=== PATIENT | female | born 1950 | race Caucasian/White ===

== ENCOUNTER → 2017-01-06 | Outpatient (CLI) | payer BC, OTHER ==
[~2017-01-06] MED LIST: /FEXO18TA; ACET50TAOT PO; ADVIL PM; ALBU17IN INH; ASPI81TA3; AZIT250T3 PO; BENA25CA2 PO; CEFD1CAP8 PO; DYAZ37.5; ECOT325T5; GABA300C3 PO; HYDR-3713 PO; LEVO75TA4 PO; LISI10TA4; LOVE0.8I3 SC; METO25TAB PO; MONT10TA2 PO; MULTIVITAMIN; NEUR300C; PRAD150C PO; PROV100T; SYNT75TA; TRAM50TA2; TRAM50TA2 PO; VESICARE; VICO5TAB; VITA-121 PO; VITAMIN D50000 UNT; VITMTA PO; WELL200T; [UNRECOGNIZED DRUG - OTHER]; [UNRECOGNIZED DRUG - REMARK]; provigil; vesicare; vit d
--- NOTE | 2017-01-06 12:14 | REP ---
Clinical: Chest pain with chronic atrial fibrillation . Comparison: 07/29/2016 . Technique: PA and lateral. Findings: The mediastinum and cardiac silhouette are normal. The lung rivera are clear and without acute consolidation, effusion, or pneumothorax. The skeletal structures are intact and normal. Impression: 1. No acute cardiopulmonary process. Signed by Carter Garcia MD 01/06/2017 12:04 P
[2017-01-06 17:57] LABS: INR 1.15
[2017-01-06 18:24] LABS: ALBUMIN 3.5 GM/DL (3.2-5.2); ALKALINE PHOSPHATASE 64 U/L (45-117); ALT/SGPT 15 U/L (12-78); ANION GAP 10 MEQ/L (8-16); AST/SGOT 16 U/L (15-37); BILIRUBIN,TOTAL 0.3 MG/DL (0.2-1.0); BLOOD UREA NITROGEN 21 MG/DL (7-18); CALCIUM LEVEL 9.4 MG/DL (8.8-10.2); CARBON DIOXIDE LEVEL 27 MEQ/L (21-32); CHLORIDE LEVEL 107 MEQ/L (98-107); CREATININE FOR GFR 0.93 MG/DL (0.55-1.02); GLOMERULAR FILTRATION RATE > 60.0 (>45); GLUCOSE, FASTING 102 MG/DL (80-110); POTASSIUM SERUM 4.4 MEQ/L (3.5-5.1); SODIUM LEVEL 144 MEQ/L (136-145); TOTAL PROTEIN 7.4 GM/DL (6.4-8.2)
[2017-01-06 18:59] LABS: BASO % 0.5 % (0.0-1.0); EOS # 0.2 K/mm3 (0.0-0.50); EOS % 3.3 % (0.0-3.0); LYMPH # 2.4 K/mm3 (1.5-4.5); LYMPH % 40.2 % (24.0-44.0); MEAN CORPUSCULAR HEMOGLOBIN 27.6 pg (27.0-33.0); MEAN CORPUSCULAR HGB CONC 31.5 g/dl (32.0-36.5); MEAN CORPUSCULAR VOLUME 87.7 fl (80.0-96.0); MONO # 0.4 K/mm3 (0.0-0.8); MONO % 7.3 % (0.0-5.0); NEUTROPHILS # 2.8 K/mm3 (1.8-7.7); NEUTROPHILS % 47.2 % (36.0-66.0); RED CELL DISTRIBUTION WIDTH 15.3 % (11.5-14.5); WHITE BLOOD COUNT 5.9 K/mm3 (4.0-10.0)
== END ==
LOC: M SMT 11:42
PROVIDERS: ATTEND Physician Assistant Medical
DX: I48.2 Chronic atrial fibrillation (principal)

== ENCOUNTER → 2017-03-28 | Outpatient (CLI) | payer MEDICARE, BC, OTHER ==
[~2017-03-28] MED LIST changes: +GABA-282 PO; -GABA300C3 PO
--- NOTE | 2017-03-29 08:01 | RADONC ---
RADIATION ONCOLOGY CONSULTATION NOTE DATE: 03/28/2017 CHART NUMBER: [id number] DIAGNOSIS: Left breast cancer STAGE: I A, [id number]. ECOG performance status: 1. CONSULTATION NOTE: Ms. 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 HISTORY OF PRESENT ILLNESS: The patient was in her usual state of health until she felt a lump in her left breast in the fall of 2015. On 07/18/2016, the patient underwent needle localization excisional biopsy of her left breast mass. Pathology revealed a 0.8 cm moderately differentiated invasive ductal carcinoma. The tumor focally extended to the inked and cauterized anterior resection margin. The tumor was estrogen receptor and progesterone receptor positive and HER2 negative. DCIS was also present at the periphery of the invasive carcinoma. Further treatment and re-excision was planned, but apparently the patient developed a pulmonary embolism. She subsequently underwent multiple medical issues and her malignancy was unable to be addressed. On 02/15/2017, the patient underwent re-excision with a left lobe lumpectomy. Pathology revealed no evidence of residual carcinoma or DCIS. The patient was seen by medical oncology and has begun hormonal treatment. The patient has had difficulties with a hematoma and wound dehiscence. She is presenting to me today with a bandage which is clearly blood stained. PAST MEDICAL HISTORY: The patient's past medical history is positive for asthma, arthritis, bronchitis , pulmonary embolism, cataracts, cardiac problems including atrial fibrillation, carpal tunnel syndrome, a cholecystectomy, left rotator cuff surgery and spinal stenosis, as well as, sleep apnea and asthma. She has hypothyroidism. She is presently on Lovenox. ALLERGIES: The patient has NO KNOWN DRUG ALLERGIES. SOCIAL HISTORY: The patient does not smoke cigarettes nor abuse alcohol. FAMILY HISTORY: The patient's family history is positive for a father with colon cancer, a brother with colon cancer, a sister with leiomyosarcoma, another sister with breast cancer, and a brother with prostate cancer. REVIEW OF SYSTEMS: The patient's review of systems is positive for physical limitations secondary to her weight and spinal stenosis. She also has occasional dizziness. She reports some difficulty swallowing and decreased energy. PHYSICAL EXAMINATION: The patient is a 353 pound, 5 feet 5 inch female in no acute distress. HEENT: Exam is normocephalic, atraumatic. Extraocular movements are intact. There is no palpable cervical, supraclavicular, infraclavicular, axillary or inguinal lymphadenopathy present. The patient's lungs are clear to auscultation and percussion. Heart has a regular rate and rhythm. Breast examination reveals a right breast which is free of mass or discharge. Her left breast has an open wound which is oozing blood out. In the short time that the patient took her bandage off, there was blood running down her abdomen, her clothes, and it took a significant amount of pads to soak it up. The bleeding did not seem to slow down. She is as mentioned above on Lovenox. There is bruising over the breast and another area of an unhealed region of the scar. The swelling from the hematoma is clearly apparent. ASSESSMENT: At this point, I do not believe radiation is strongly indicated in this woman. I explained to the patient and her that the standard of care would be lumpectomy followed by external beam radiation therapy. External beam radiation therapy would normally be delivered within 6 weeks of surgery. Unfortunately, the patient had multiple medical issues and it is now 8 months since she was last found to have cancer. Indeed, the patient underwent a re-excision 7 months after her malignancy was excised and no residual disease was seen at all. The idea of giving postoperative radiation therapy at this point may be of just questionable benefit. To further exacerbate the issue, the patient's wound has broken down and she is bleeding. I do not see this healing anytime soon over the next month or two. This would delay radiation therapy even further. I have put a call in to her primary care provider, Geeta Bey, to discuss her bleeding. I am quite concerned at the amount of blood lost in the short period of time she was here. I am aware that this is from a hematoma, but in a patient with an open wound that is bleeding while on Lovenox, I am concerned that it may not stop. Indeed, the patient reports that her bleeding started yesterday and she lost a significant amount of blood initially which relieved the pressure of her breast mass. She reports that her breast is down in size by at least a half. She then reported that the hematoma seemed to fill back up and the bleeding has now resumed. I have recommended that she call Dr. Turner immediately and expressed concern with this bleeding while on Lovenox. The patient promised me she would call the surgeon. Once again, the patient is to call the surgeon and Geeta Bey today. Geeta Bey will be calling the patient as well. The patient is aware of the need to proceed with followup if this bleeding does not resolve soon. In addition, I have placed the patient on our list for discussion at multidisciplinary tumor conference. SUMMARY: Once again, I do not believe that radiation therapy would be of great benefit to this woman at this point, now 9 months post diagnosis of breast cancer. I would not be able to start treatment for at least 2 months I would anticipate to allow for further healing even if she chose to undergo treatment. cc: Brenna Chappell MD, FACP MD Joan Small PA MTDD
== END ==
LOC: M ONCR 10:16
PROVIDERS: ATTEND Radiology Radiation Oncology
DX: D05.12 Intraductal carcinoma in situ of left breast (principal)

== ENCOUNTER → 2017-05-18 | Outpatient (CLI) | payer MEDICARE, BC, OTHER ==
[~2017-05-18] MED LIST changes: +AZIT-12 PO; -AZIT250T3 PO; +METO25TA4 PO; -METO25TAB PO
--- NOTE | 2017-05-18 15:08 | RADONC ---
RADIATION ONCOLOGY PROGRESS NOTE DATE: 05/18/2017 CHART NUMBER: [id number] DIAGNOSIS: Left breast cancer. STAGE: IA, [id number]. ECOG PERFORMANCE STATUS: 1 Ms. 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 At that time, the patient had an open wound in her breast which was bleeding significantly. Clearly, we are unable to begin radiation at that point. It had been a protracted period of time since her first surgery, and the question became one of whether or not radiation would be of great benefit to her by the time we would be able to start. Since her last visit, the patient was seen by her surgeon and thought further about the issue. She has decided she does want the radiation at this point. In light of this, I think it reasonable to offer the patient this treatment. Patient has returned today but continues to have an open wound present. It is healed significantly and is much smaller than it was 2 months ago. There is still, however, an opening measuring approximately 5 mm in circumference. She is wearing a bandage over this, and it has been oozing. I had a lengthy discussion with the patient and her . Although it will be a protracted period of time, it is not unreasonable to offer her radiation and if she wishes to undergo that procedure, we would be more than happy to do it. The wound, however, needs to be healed prior to initiation of treatment. I have therefore set her up for return to our office in 3 weeks' time. By then, hopefully, the wound will have healed, and we can initiate treatment planning and subsequent treatment. Thank you for allowing us to participate in the care of this very pleasant woman. I will keep you informed as to any new developments as they occur. cc: Brenna Chappell MD, FACP MD Joan Small PA MTDD
== END ==
LOC: M ONCR 13:11
PROVIDERS: ATTEND Radiology Radiation Oncology
DX: C50.412 Malignant neoplasm of upper-outer quadrant of left female breast (principal); M54.5 Low back pain; E03.9 Hypothyroidism, unspecified; E55.9 Vitamin D deficiency, unspecified

== ENCOUNTER → 2017-05-18 | Outpatient (REF) | payer MEDICARE, OTHER ==
[2017-05-18 16:47] LABS: BASO % 0.7 % (0.0-1.0); EOS # 0.2 K/mm3 (0.0-0.50); EOS % 3.5 % (0.0-3.0); LYMPH # 1.9 K/mm3 (1.5-4.5); LYMPH % 39.6 % (24.0-44.0); MEAN CORPUSCULAR HGB CONC 32.2 g/dl (32.0-36.5); MEAN CORPUSCULAR VOLUME 86.9 fl (80.0-96.0); MONO # 0.5 K/mm3 (0.0-0.8); MONO % 10.6 % (0.0-5.0); NEUTROPHILS # 2.1 K/mm3 (1.8-7.7); NEUTROPHILS % 43.1 % (36.0-66.0); RED CELL DISTRIBUTION WIDTH 15.2 % (11.5-14.5); WHITE BLOOD COUNT 4.8 K/mm3 (4.0-10.0)
[2017-05-18 17:15] LABS: ALBUMIN 3.4 GM/DL (3.2-5.2); ALBUMIN/GLOBULIN RATIO 0.97 (1.00-1.93); ALKALINE PHOSPHATASE 57 U/L (45-117); ALT/SGPT 17 U/L (12-78); ANION GAP 12 MEQ/L (8-16); AST/SGOT 15 U/L (15-37); BILIRUBIN,TOTAL 0.4 MG/DL (0.2-1.0); BLOOD UREA NITROGEN 22 MG/DL (7-18); CALCIUM LEVEL 8.7 MG/DL (8.8-10.2); CARBON DIOXIDE LEVEL 25 MEQ/L (21-32); CHLORIDE LEVEL 104 MEQ/L (98-107); CREATININE FOR GFR 0.99 MG/DL (0.55-1.02); GLOMERULAR FILTRATION RATE > 60.0 (>45); GLUCOSE, FASTING 92 MG/DL (80-110); POTASSIUM SERUM 4.7 MEQ/L (3.5-5.1); SODIUM LEVEL 141 MEQ/L (136-145); TOTAL PROTEIN 6.9 GM/DL (6.4-8.2)
[2017-05-21 00:06] LABS: Lyme Disease IgG/IgM Antibodie <0.91 ISR (0.00-0.90); Lyme Disease IgM Ab Quantitati <0.80 index (0.00-0.79)
[2017-05-22 11:54] LABS: ALBUMIN % 48.5 % (55.8-66.1); GAMMA GLOBULIN % 19.5 % (11.1-18.8)
== END ==
LOC: M LABDRAW1 15:58
PROVIDERS: ATTEND Physician Assistant Medical
DX: C50.912 Malignant neoplasm of unspecified site of left female breast (principal); M54.5 Low back pain; E03.9 Hypothyroidism, unspecified; E55.9 Vitamin D deficiency, unspecified

== ENCOUNTER → 2017-06-13 | Outpatient (CLI) | payer MEDICARE, OTHER ==
--- NOTE | 2017-06-14 07:54 | RADONC ---
RADIATION ONCOLOGY PROGRESS NOTE: DATE: 06/13/2017 CHART NUMBER: [id number]. DIAGNOSIS: Left breast cancer. STAGE: I A, [id number]. ECOG PERFORMANCE STATUS: 1. PROGRESS NOTE: Ms. Camarillo has re-presented to me today for further evaluation with regards to the healing of her breast. The patient first underwent a lumpectomy on 07/18/2016. She subsequently had multiple medical issues and only underwent her completion lumpectomy on 02/15/2017. She then had wound breakdown and has been followed by me since then. It is now 4 months since that surgery and the patient presents now with what appears to be a healed surgical scar. She is presenting for discussion and set up of initiation of treatment planning for postoperative radiation therapy for conservative breast management. The patient came in and reports that she has been undergoing a workup for lupus. Apparently, she now has a diagnosis of active lupus. I have spent a significant amount of time with this patient at this point to explain to her the added risks of lupus. There are studies in the literature that document good outcome with postoperative radiation in patients with lupus. It is still however, considered a general contraindication. I have also noted and discussed with the patient documentation of the literature of severe complications with active lupus and radiation some resulting in . I did express my concern that this treatment preventative in nature. Once again , I explained to her that there was no residual disease in her lumpectomy cavity before re-excision. No DCIS was found. No lymphadenopathy was found. I expressed my reservations with exposing this woman with her multiple medical issues, including cellulitis, to radiation at this point. I explained that it may be wiser to follow her closely with either mammography or MRIs. I explained to her however, in light of the literature that supports radiation in patients with lupus I am willing to consider treating her and I have therefore scheduled her for initiation of treatment planning. I have asked her to consider further whether or not she wishes to undertake this treatment and she will be discussing this with her physicians in [place] as well. When she discusses this with Dr. Turner, she will make a final decision and radiation can begin, if she wishes, or we can continue with close followup. STEVEN
--- NOTE | 2017-06-16 09:16 | RADONC ---
RADIATION ONCOLOGY PROGRESS NOTE DATE: 06/14/2017 CHART NUMBER: [id number] Ms. Camarillo had been scheduled for simulation of her left breast today. Since I had spoken with her yesterday, I have also put in several phone calls to various colleagues throughout the region including the radiation oncologist associated with her surgeon Dr. Turner. The consensus has been to withhold radiation at this point until her lupus is under better control. Apparently, she continues to have acute symptoms from her lupus at this point and although radiation could be offered, the consensus is that it is risky at this time. Once again, these treatments are prophylactic in nature. She has no known residual cancer and, indeed, has had a re-resection with no evidence of malignancy in the previous lumpectomy site. These treatments, therefore, are simply to reduce the chance of local recurrence. In light of documented severe complications, although anecdotal in the literature, it may not be luna to risk that during this active outbreak of lupus. The patient reports that she has significant symptoms at this time. She is not presently under the care of a physician for her lupus. In light of this, I have set the patient up for followup in our office and re-evaluation once she has been treated. In addition, I am ordering a new mammogram to be undertaken, and we will continue to follow her closely in the meantime. She is on hormonal therapy at this point as well.
== END ==
LOC: M ONCR 13:52
PROVIDERS: ATTEND Radiology Radiation Oncology
DX: C50.412 Malignant neoplasm of upper-outer quadrant of left female breast (principal)

== ENCOUNTER → 2017-06-15 | Outpatient (REF) | payer MEDICARE, BC, OTHER ==
[2017-06-15 18:29] LABS: TOTAL PROTEIN 7.9 GM/DL (6.4-8.2)
[2017-06-20 10:59] LABS: ALBUMIN 4.11 GM/DL (3.29-5.55); GAMMA GLOBULIN % 20.5 % (11.1-18.8)
== END ==
LOC: M LABDRAW1 11:42
PROVIDERS: ATTEND Physician Assistant Medical
DX: D68.62 Lupus anticoagulant syndrome (principal)

== ENCOUNTER → 2017-06-21 | Outpatient (CLI) | payer MEDICARE, BC, OTHER ==
--- NOTE | 2017-06-21 13:22 | REP ---
DIGITAL DIAGNOSTIC BILATERAL MAMMOGRAPHY WITH CAD: HISTORY: The patient has a personal history of breast carcinoma of the left breast status post lumpectomy July 2016. No postop imaging for comparison. Comparison mammography May 23, 2016. FINDINGS: The right breast remains predominately fat replaced and unremarkable. No suspicious finding is noted on the right. On the left there are surgical clips in the posterior third of the left breast centrally and somewhat medially. There is a large spiculated mass 5-1/2 cm in diameter in the left breast at the operative site consistent with hematoma, seroma cavity postoperative deformity. No microcalcification is seen. There is some mild skin thickening. IMPRESSION: Extensive post-treatment changes left breast consistent with hematoma, seroma and postoperative fibrosis. BIRADS category 2 benign bilateral breast imaging. Screening bilateral mammography recommended 1 year. BI-RADS/ACR category 2 mammogram. Benign finding(s). Routine annual screening mammography (for women over age 40). This mammogram was interpreted with the aid of an FDA-approved computer-aided detection system. The patient states she/he had a clinical breast exam in May 2017. The patient letter being requested is M2. Signed by Canelo Michel MD 06/21/2017 06:33 P
== END ==
LOC: M RAD 11:03
PROVIDERS: ATTEND Radiology Radiation Oncology
DX: Z12.31 Encounter for screening mammogram for malignant neoplasm of breast (principal); R92.8 Other abnormal and inconclusive findings on diagnostic imaging of breast

== ENCOUNTER → 2017-07-03 | Outpatient (REF) | payer MEDICARE, BC, OTHER ==
[2017-07-05 14:14] LABS: SJOGREN'S ANTI SS-A <0.2 AI (0.0-0.9); SJOGREN'S ANTI SS-B <0.2 AI (0.0-0.9)
[2017-07-11 10:31] LABS: APTT 27.4 sec (.); Anticardiolipin Ab, IgA <10 APL (.); DRVTT Confirm Seconds 38.9 sec (.); DRVTT Ratio 1.2 ratio (.); DRVTT Screen Seconds 52.1 sec (.)
== END ==
LOC: M LABDRAW1 15:54
PROVIDERS: ATTEND Physician Assistant Medical
DX: D68.62 Lupus anticoagulant syndrome (principal)

== ENCOUNTER → 2017-09-05 | Outpatient (CLI) | payer MEDICARE, BC, OTHER ==
--- NOTE | 2017-09-05 14:22 | REP ---
WHOLE BODY BONE SCAN: Following the intravenous administration of 21.6 mCi technetium 99m MDP, patient's whole body is imaged in the anterior and posterior projections. Additional oblique images of the thoracic and pelvic regions are performed as well as lateral views of the calvarium, knees, and feet. I see no compelling scintigraphic evidence of osseous metastases. There appears to be arthritic uptake in the upper and lower lumbar spine region, at the sacroiliac joints, and in both feet. There is ill-defined soft tissue uptake in the lower panniculus bilaterally, which is nonspecific. This may represent inflammatory soft tissue uptake. Renal and bladder activity are seen. IMPRESSION: No compelling scintigraphic evidence of osseous metastases. Mild scattered arthritic uptake. There is ill-defined soft tissue uptake in the lower panniculus bilaterally. This may be caused by an inflammatory process in these soft tissues. Signed by Lazaro Pelletier MD 09/05/2017 05:06 P
== END ==
LOC: M RAD 09:41
PROVIDERS: ATTEND Surgery Surgical Oncology
DX: C50.912 Malignant neoplasm of unspecified site of left female breast (principal); M89.8X9 Other specified disorders of bone, unspecified site
CPT/HCPCS: 78306; A9503

== ENCOUNTER → 2017-09-29 | Outpatient (REF) | payer MEDICARE, OTHER | LOC: M SFHCWAGY 11:41 | PROVIDERS: ATTEND Nurse Practitioner Family | DX: Z12.4 Encounter for screening for malignant neoplasm of cervix (principal) | CPT/HCPCS: 87624; G0123 ==

== ENCOUNTER → 2017-12-13 | Outpatient (CLI) | payer MEDICARE, BC | LOC: M WHC 08:54 | DX: M85.9 Disorder of bone density and structure, unspecified (principal); C50.912 Malignant neoplasm of unspecified site of left female breast; Z17.0 Estrogen receptor positive status [ER+] | CPT/HCPCS: 77081 ==

== ENCOUNTER → 2017-12-13 | Outpatient (CLI) | payer MEDICARE, BC | LOC: M ONCR 09:41 | DX: C50.412 Malignant neoplasm of upper-outer quadrant of left female breast (principal) | CPT/HCPCS: G0463 ==

== ENCOUNTER → 2017-12-18 | Outpatient (CLI) | payer MEDICARE, BC ==
[2017-12-18 13:23] LABS: HEMATOCRIT 43.6 % (36.0-47.0); HEMOGLOBIN 14.2 g/dl (12.0-16.0); MEAN CORPUSCULAR HEMOGLOBIN 28.4 pg (27.0-33.0); MEAN CORPUSCULAR HGB CONC 32.6 g/dl (32.0-36.5); MEAN CORPUSCULAR VOLUME 87.2 fl (80.0-96.0); PLATELET COUNT, AUTOMATED 187 10^3/uL (150-450)
[2017-12-18 14:03] LABS: ALBUMIN 3.7 GM/DL (3.2-5.2); ALBUMIN/GLOBULIN RATIO 1.03 (1.00-1.93); ALKALINE PHOSPHATASE 73 U/L (45-117); ALT/SGPT 17 U/L (12-78); ANION GAP 8 MEQ/L (8-16); AST/SGOT 12 U/L (7-37); BILIRUBIN,TOTAL 0.5 MG/DL (0.2-1.0); BLOOD UREA NITROGEN 20 MG/DL (7-18); CARBON DIOXIDE LEVEL 27 MEQ/L (21-32); CHLORIDE LEVEL 108 MEQ/L (98-107); CHOLESTEROL LEVEL 141 MG/DL (<200); CHOLESTEROL RISK RATIO 4.862 (<5); CREATININE FOR GFR 0.77 MG/DL (0.55-1.30); GLOMERULAR FILTRATION RATE > 60.0 (>45); GLUCOSE, FASTING 96 MG/DL (70-100); HDL CHOLESTEROL 29 MG/DL (>40); LDL CHOLESTEROL 63.8 MG/DL (<100); NON-HDL-C 112 MG/DL; POTASSIUM SERUM 4.6 MEQ/L (3.5-5.1); SODIUM LEVEL 143 MEQ/L (136-145); TOTAL PROTEIN 7.3 GM/DL (6.4-8.2); TRIGLYCERIDES LEVEL 241 MG/DL (<150)
[2017-12-18 14:16] LABS: ESTIMATED AVERAGE GLUCOSE 140 MG/DL (60-110); HEMOGLOBIN A1c 6.5 %
[2017-12-18 14:43] LABS: TOTAL 25(OH) VITAMIN D 25.5 NG/ML (30.0-100.0)
== END ==
LOC: M LAB 12:22
DX: I10 Essential (primary) hypertension (principal); E03.9 Hypothyroidism, unspecified; Z79.899 Other long term (current) drug therapy
CPT/HCPCS: 71046

== ENCOUNTER → 2018-07-04 | Outpatient (REF) | payer MEDICARE, OTHER ==
[2018-07-04 14:23] LABS: GLUCOSE, FASTING 92 MG/DL (70-100)
[2018-07-04 14:23] LABS: TOTAL 25(OH) VITAMIN D 41.6 NG/ML (30.0-100.0)
[2018-07-04 15:42] LABS: ESTIMATED AVERAGE GLUCOSE 131 MG/DL (60-110); HEMOGLOBIN A1c 6.2 %
== END ==
LOC: M LABDRAW1 11:39
DX: E11.9 Type 2 diabetes mellitus without complications (principal); R53.83 Other fatigue
CPT/HCPCS: 82947

== ENCOUNTER → 2018-08-10 | Outpatient (CLI) | payer MEDICARE, OTHER ==
[2018-08-10 14:01] LABS: BASO % 0.6 % (0.0-1.0); EOS # 0.1 10^3/uL (0.0-0.50); EOS % 1.9 % (0.0-3.0); HEMATOCRIT 47.6 % (36.0-47.0); HEMOGLOBIN 14.9 g/dl (12.0-15.5); IMMATURE GRANULOCYTE % 0.2 % (0-3.0); LYMPH # 2.5 10^3/uL (1.5-4.5); LYMPH % 40.1 % (24.0-44.0); MEAN CORPUSCULAR HEMOGLOBIN 28.2 pg (27.0-33.0); MEAN CORPUSCULAR HGB CONC 31.3 g/dl (32.0-36.5); MONO # 0.8 10^3/uL (0.0-0.8); MONO % 13.2 % (0.0-5.0); NEUTROPHILS # 2.7 10^3/uL (1.8-7.7); PLATELET COUNT, AUTOMATED 173 10^3/uL (150-450); RED BLOOD COUNT 5.29 10^6/uL (4.00-5.40); RED CELL DISTRIBUTION WIDTH 13.7 % (11.5-14.5); WHITE BLOOD COUNT 6.2 10^3/uL (4.0-10.0)
[2018-08-10 14:44] LABS: ALBUMIN 3.9 GM/DL (3.2-5.2); ALBUMIN/GLOBULIN RATIO 1.11 (1.00-1.93); ALKALINE PHOSPHATASE 75 U/L (45-117); ALT/SGPT 21 U/L (12-78); ANION GAP 8 MEQ/L (8-16); AST/SGOT 20 U/L (7-37); BILIRUBIN,TOTAL 0.4 MG/DL (0.2-1.0); BLOOD UREA NITROGEN 20 MG/DL (7-18); CALCIUM LEVEL 9.4 MG/DL (8.8-10.2); CARBON DIOXIDE LEVEL 30 MEQ/L (21-32); CHLORIDE LEVEL 107 MEQ/L (98-107); CPK CREATINE PHOSPHOKINASE 153 U/L (26-192); CREATININE FOR GFR 0.81 MG/DL (0.55-1.30); GLOMERULAR FILTRATION RATE > 60.0 (>45); GLUCOSE, FASTING 90 MG/DL (70-100); MB/CK RELATIVE INDEX 1.11 (< OR =4); SODIUM LEVEL 145 MEQ/L (136-145); TOTAL PROTEIN 7.4 GM/DL (6.4-8.2); TROPONIN I < 0.02 NG/ML (< 0.10)
[2018-08-10 19:20] LABS: D-DIMER QUANT < 270.0 ng/ml (<500)
== END ==
LOC: M WUC 12:25
DX: J20.9 Acute bronchitis, unspecified (principal)
CPT/HCPCS: 82550

== ENCOUNTER → 2018-08-30 | Outpatient (CLI) | payer MEDICARE, OTHER | LOC: M WUC 10:50 | DX: R05 Cough (principal); I51.7 Cardiomegaly | CPT/HCPCS: 71046 ==

== ENCOUNTER → 2018-10-01 | Outpatient (REF) | payer MEDICARE, OTHER ==
[~2018-10-01] MED LIST changes: +ACET500T15 PO; -ACET50TAOT PO; -GABA-282 PO; +GABA-843 PO
== END ==
LOC: M SFHCWAGY 11:17
PROVIDERS: ATTEND Nurse Practitioner Family
DX: Z12.4 Encounter for screening for malignant neoplasm of cervix (principal); N95.2 Postmenopausal atrophic vaginitis; C50.912 Malignant neoplasm of unspecified site of left female breast; Z91.89 Other specified personal risk factors, not elsewhere classified; Z12.12 Encounter for screening for malignant neoplasm of rectum
CPT/HCPCS: 82270; G0101; G0123

== ENCOUNTER → 2018-10-10 | Outpatient (CLI) | payer MEDICARE, BC ==
--- NOTE | 2018-10-10 11:57 | REPMRS ---
Patient History The patient states she had a clinical breast exam in 10/02 Patient is postmenopausal, has history of breast cancer at age 66, and is nulliparous. Family history of colorectal cancer under age 50 in brother, colorectal cancer at age 50 or over in father, prostate cancer at age 50 or over in brother, breast cancer at age 50 or over in maternal aunt, breast cancer at age 50 or over in sister, endometrial cancer at age 50 or over in niece. Malignant radio exam breast specimen, July 18, 2016. 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 Taking tamoxifen for 2 years. Digital Woman Screen Mammo: October 10, 2018 - Exam #: [id number] Bilateral CC and MLO view(s) were taken. Technologist: Lisa Reid, Technologist Prior study comparison: June 21, 2017, bilateral digital mammo screening bilat, performed at [facility]. September 15, 2016, right breast digital mammo diagnostic unilateral, performed at [facility]. May 26, 2016, left breast digital mammo diagnostic unilateral, performed at [facility]. FINDINGS: There are scattered fibroglandular densities. There are stable post treatment changes in the left breast. There has been no change in the appearance of the mammogram from the prior studies. There is a mild amount of scattered fibroglandular density which is fairly symmetric. There is no interval development of dominant mass, architectural distortion, or clustered microcalcification suggestive of malignancy. 3-D tomosynthesis shows no additional findings. Assessment: BI-RADS/ACR category 2 mammogram. Benign finding(s). Recommendation Routine screening mammogram of both breasts in 1 year (for women over age 40). This mammogram was interpreted with the aid of an FDA-approved computer-aided dectection system. Electronically Signed By: Milo Michel MD 10/10/18 [id number]
== END ==
LOC: M WHC 10:51
PROVIDERS: ATTEND Nurse Practitioner Family
DX: Z12.31 Encounter for screening mammogram for malignant neoplasm of breast (principal); Z85.3 Personal history of malignant neoplasm of breast; Z80.0 Family history of malignant neoplasm of digestive organs

== ENCOUNTER → 2018-12-12 | Outpatient (CLI) | payer MEDICARE, BC, OTHER ==
[2018-12-12 13:33] LABS: CREATININE FOR GFR 0.85 MG/DL (0.55-1.30); GLOMERULAR FILTRATION RATE > 60.0 (>45)
== END ==
LOC: M LAB 12:04
PROVIDERS: ATTEND Internal Medicine Hematology
DX: C50.912 Malignant neoplasm of unspecified site of left female breast (principal)

== ENCOUNTER → 2018-12-14 | Outpatient (CLI) | payer MEDICARE, BC, OTHER ==
[~2018-12-14] MED LIST changes: +GASTROGRAFIN SOLUTION 30ML (Q9963) As Ordered ONE; +ISOVUE-370 76% 100ML VIAL (Q9967) As Ordered ONE
--- NOTE | 2018-12-15 12:50 | REP ---
Clinical: Abdominal pain with history of breast cancer. Technique: Axial images from the lung bases to the pubic symphysis after the administration of oral contrast material with coronal and sagittal re-formations. Comparison: 07/30/2013. Findings: Lung bases are clear. Visualized heart and pericardium grossly normal. Liver, spleen, pancreas, bilateral adrenal glands are normal for noncontrast evaluation. Evidence for prior cholecystectomy noted. The left kidney appears mildly atrophic as compared to the right kidney and mild chronic bilateral perinephric stranding along with possible small bilateral renal cysts are suggested. No hydronephrosis or significant nephrolithiasis identified. The enteric system is without obstruction or acute inflammatory process. Normal terminal ileum and appendix are identified in the right lower quadrant. Pelvis demonstrates normal bladder and age-appropriate uterus/adnexa small supraumbilical ventral hernia is identified measuring approximately 2.5 cm. Abdominal aorta and vasculature without aneurysm. No ascites. No significant adenopathy. No free air. Skeletal structures demonstrate degenerative changes without focal osseous abnormality. Large fluid collections are identified in the anterior subcutaneous tissues overlying the lower abdomen and pelvis which due to body habitus are incompletely evaluated but require further investigation and are otherwise nonspecific. Impression: 1. No obvious acute abdominopelvic pathology is appreciated. Specifically, there is no evidence for adenopathy, or or metastatic disease. No ascites, or focal inflammatory stranding noted. 2. Chronic changes as noted above. 3. Small fat containing ventral hernia. 4. Large fluid collections in the subcutaneous tissues overlying the anterior lower abdominal pelvic wall incompletely evaluated due to body habitus and technical factors but require further investigation. Electronically Signed by Carter Garcia MD 12/15/2018 12:41 P
== END ==
LOC: M RAD 12:56
PROVIDERS: ATTEND Internal Medicine Hematology
DX: C50.912 Malignant neoplasm of unspecified site of left female breast (principal); K43.9 Ventral hernia without obstruction or gangrene; Z17.0 Estrogen receptor positive status [ER+]; M85.80 Other specified disorders of bone density and structure, unspecified site; Z79.811 Long term (current) use of aromatase inhibitors; R10.84 Generalized abdominal pain; R10.30 Lower abdominal pain, unspecified
CPT/HCPCS: 74176; 77080; Q9963

== ENCOUNTER → 2018-12-14 | Outpatient (CLI) | payer MEDICARE, BC ==
[~2018-12-14] MED LIST changes: -GASTROGRAFIN SOLUTION 30ML (Q9963) As Ordered ONE; -ISOVUE-370 76% 100ML VIAL (Q9967) As Ordered ONE
--- NOTE | 2018-12-18 14:12 | DEXA ---
AP SPINE L1 - L4 LT RADIUS 33%TOTAL 0.745 -1.6 -0.1 LT NECK RT RADIUS 33%TOTAL 0.649 -2.7 -1.2 RT NECK TOTAL BODY TOTAL OTHER COMMENTS: There is low bone density of the left radius. There is osteoporosis of the right The decreased density of the left radius does not represent a significant change. The decreased density of the right radius does represent a significant change. The density of the left radius 33% decreased 11.0% since the initial exam on 11/29/2011. The density of the left radius 33% decreased 0.9% since the most recent exam on 12/13/2017. The density of the right radius 33% decrease 21.8% since the initial exam on 11/29/2011. The density of the right radius 33% decreased 7.7% since the most recent exam on 12/13/2017. FOLLOW-UP: Recommendation for the next bone density exam: 2 years. STEVEN
== END ==
LOC: M WHC 11:24
PROVIDERS: ATTEND Internal Medicine Hematology
DX: C50.912 Malignant neoplasm of unspecified site of left female breast (principal); Z17.0 Estrogen receptor positive status [ER+]; M85.80 Other specified disorders of bone density and structure, unspecified site; Z79.811 Long term (current) use of aromatase inhibitors; R10.84 Generalized abdominal pain; R10.30 Lower abdominal pain, unspecified

== ENCOUNTER → 2019-02-12 | Outpatient (CLI) | payer MEDICARE, BC, OTHER ==
[~2019-02-12] MED LIST changes: -PRAD150C PO; +PRAD150C6 PO
--- NOTE | 2019-02-12 14:47 | PFTRPT ---
Site: [facility], [address] [place], [address] ID: [id number] Name: SIMRAN MARCOS Visit Date: 02/12/2019 Second ID: [id number] Referring Doctor: Eve Beal Reviewing Doctor: Avinash De La Cruz MD Camera Maker: Erik CARPENTER RRT Age: 68 : 1950 Sex: Female Race: Height: 65.00 Inches Weight: 382.00 Lbs BSA: 2.60 Order IDs: [id number] Requested Test(s): <RESP-PFT.DLCO> Diagnosis: R06.02 test meet the ATS standards for acceptability and repeatability. IVC is less than 90% of VC. DLCO may be underestimated. Pt was given four puffs of albuterol for postbronchodilator. Review Status: Not Reviewed Pre-Bronch Post-Bronch Pred Actual %Pred Actual %Chng SPIROMETRY FVC (L) 3.23 2.16 66 2.18 1 FEV1 (L) 2.46 1.70 68 1.79 5 FEV1/FVC (%) 77 79 102 82 4 FEF 25% (L/sec) 4.92 4.54 92 4.59 1 FEF 50% (L/sec) 3.44 1.90 55 2.63 38 FEF 75% (L/sec) 1.06 0.58 54 0.73 27 FEF 25-75% (L/sec) 2.11 1.48 70 2.01 35 FEF Max (L/sec) 6.04 4.59 75 5.16 12 FIVC (L) 2.16 2.13 -1 FIF 50% (L/sec) 4.23 3.55 83 3.35 -5 FIF Max (L/sec) 3.75 3.52 -6 MVV (L/min) 90 60 66 Expiratory Time (sec) 6.58 6.65 1 Back Extrap Vol (L) 0.09 0.13 44 Time To FEFmax (sec) 0.085 0.127 48 LUNG VOLUMES SVC (L) 3.03 2.55 84 IC (L) 2.23 1.64 73 ERV (L) 0.80 0.91 113 TGV (L) 2.97 2.51 84 RV (Pleth) (L) 2.17 1.60 73 TLC (Pleth) (L) 5.20 4.15 79 RV/TLC (Pleth) (%) 42 39 91 DIFFUSION DLCOunc (ml/min/mmHg) 21.29 15.02 70 DLCOcor (ml/min/mmHg) 21.29 14.33 67 DL/VA (ml/min/mmHg/L) 4.09 4.05 98 VA (L) 5.20 3.54 68 BHT (sec) 9.73 IVC (L) 2.05 TLC (SB) (L) 3.69 AIRWAYS RESISTANCE Raw (cmH2O/L/s) 1.86 1.37 73 Gaw (L/s/cmH2O) 1.03 0.74 71 sRaw (cmH2O*s) 4.76 3.54 74 sGaw (1/cmH2O*s) 0.20 0.28 141 BLOOD GASES Hgb (gm/dL) 15.1
== END ==
LOC: M CARPUL 02-07 09:26
PROVIDERS: ATTEND Nurse Practitioner Adult Health
DX: R06.02 Shortness of breath (principal)

== ENCOUNTER → 2019-10-02 | Outpatient (REF) | payer MEDICARE, OTHER | LOC: M PLALAB 10:38 | PROVIDERS: ATTEND Nurse Practitioner Family | DX: Z12.4 Encounter for screening for malignant neoplasm of cervix (principal); N95.8 Other specified menopausal and perimenopausal disorders ==

== ENCOUNTER → 2019-10-02 | Outpatient (CLI) | payer MEDICARE, BC, OTHER ==
--- NOTE | 2019-10-02 13:21 | REPMRS ---
Patient History The patient states she had a clinical breast exam in September 2019.Family history of colorectal cancer under age 50 in brother, colorectal cancer at age 50 or over in father, prostate cancer at age 50 or over in brother, breast cancer at age 50 or over in maternal aunt, breast cancer at age 50 or over in sister, endometrial cancer at age 50 or over in niece. Malignant radio exam breast specimen, July 18, 2016. 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 Taking tamoxifen for 2 years. Digital Woman Screen Mammo: October 02, 2019 - Exam #: [id number] Bilateral CC and MLO view(s) were taken. Technologist: Bruna Jessica, Technologist Prior study comparison: October 10, 2018, bilateral digital woman screen mammo performed at [facility] and [facility]. June 21, 2017, bilateral digital mammo screening bilat, performed at [facility]. September 15, 2016, right breast ultrasound unilateral limited, performed at [facility]. FINDINGS: There are scattered fibroglandular densities. There are stable post treatment changes in the left breast. There has been no change in the appearance of the mammogram from the prior studies. There is a mild amount of scattered fibroglandular density which is fairly symmetric. There is no interval development of dominant mass, architectural distortion, or grouped microcalcification suggestive of malignancy. 3-D tomosynthesis shows no additional findings. Assessment: BI-RADS/ACR category 2 mammogram. Benign Findings. Recommendation Routine screening mammogram of both breasts in 1 year (for women over age 40). This mammogram was interpreted with the aid of an FDA-approved computer-aided dectection system. Electronically Signed By: Miol Michel MD 10/02/19 [id number]
== END ==
LOC: M WHC 09:45
PROVIDERS: ATTEND Nurse Practitioner Family
DX: Z12.31 Encounter for screening mammogram for malignant neoplasm of breast (principal); Z91.89 Other specified personal risk factors, not elsewhere classified; Z80.0 Family history of malignant neoplasm of digestive organs; Z80.42 Family history of malignant neoplasm of prostate; Z80.3 Family history of malignant neoplasm of breast; Z92.29 Personal history of other drug therapy
CPT/HCPCS: 77063; 77067; G0101; G0123

== ENCOUNTER → 2020-06-15 | Outpatient (CLI) | payer MEDICARE, OTHER ==
[~2020-06-15] MED LIST changes: -MONT10TA2 PO; +MONT10TA4 PO
[2020-06-15 19:07] LABS: HEMATOCRIT 49.5 % (36.0-47.0); HEMOGLOBIN 15.2 g/dl (12.0-15.5); MEAN CORPUSCULAR HEMOGLOBIN 28.7 pg (27.0-33.0); MEAN CORPUSCULAR HGB CONC 30.7 g/dl (32.0-36.5); MEAN CORPUSCULAR VOLUME 93.6 fl (80.0-96.0); PLATELET COUNT, AUTOMATED 187 10^3/uL (150-450); RED BLOOD COUNT 5.29 10^6/uL (4.00-5.40)
[2020-06-15 19:17] LABS: ALBUMIN 3.8 GM/DL (3.2-5.2); ALT/SGPT 23 U/L (12-78); BILIRUBIN,TOTAL 0.5 MG/DL (0.2-1.0); BLOOD UREA NITROGEN 18 MG/DL (7-18); CALCIUM LEVEL 8.8 MG/DL (8.8-10.2); CARBON DIOXIDE LEVEL 30 MEQ/L (21-32); CHLORIDE LEVEL 108 MEQ/L (98-107); CHOLESTEROL LEVEL 146 MG/DL (<200); CHOLESTEROL RISK RATIO 5.615 (<5); CREATININE FOR GFR 0.91 MG/DL (0.55-1.30); GLOMERULAR FILTRATION RATE > 60.0 (>45); GLUCOSE, FASTING 98 MG/DL (70-100); HDL CHOLESTEROL 26 MG/DL (>40); LDL CHOLESTEROL 79 MG/DL (<100); NON-HDL-C 120 MG/DL; POTASSIUM SERUM 4.7 MEQ/L (3.5-5.1); SODIUM LEVEL 141 MEQ/L (136-145); TOTAL 25(OH) VITAMIN D 35.5 NG/ML (30.0-100.0); TOTAL PROTEIN 7.6 GM/DL (6.4-8.2); TRIGLYCERIDES LEVEL 203 MG/DL (<150)
[2020-06-15 19:32] LABS: HEMOGLOBIN A1c 6.3 %
== END ==
LOC: M WUC 12:27
PROVIDERS: ATTEND Family Medicine
DX: D64.9 Anemia, unspecified (principal); E03.9 Hypothyroidism, unspecified; R53.83 Other fatigue; Z79.899 Other long term (current) drug therapy

== ENCOUNTER → 2020-12-15 | Outpatient (CLI) | payer MEDICARE, OTHER, BC ==
[~2020-12-15] MED LIST changes: +GABA-282 PO; -GABA-843 PO; +MONT10TA10 PO; -MONT10TA4 PO
[2020-12-15 12:02] LABS: HEMATOCRIT 48.5 % (36.0-47.0); HEMOGLOBIN 14.7 g/dl (12.0-15.5); MEAN CORPUSCULAR HEMOGLOBIN 28.1 pg (27.0-33.0); MEAN CORPUSCULAR HGB CONC 30.3 g/dl (32.0-36.5); MEAN CORPUSCULAR VOLUME 92.6 fl (80.0-96.0); PLATELET COUNT, AUTOMATED 191 10^3/uL (150-450); RED BLOOD COUNT 5.24 10^6/uL (4.00-5.40); WHITE BLOOD COUNT 6.8 10^3/uL (4.0-10.0)
[2020-12-15 12:27] LABS: HEMOGLOBIN A1c 6.2 %
[2020-12-15 12:46] LABS: ALBUMIN 3.7 GM/DL (3.2-5.2); ALT/SGPT 19 U/L (12-78); BILIRUBIN,TOTAL 0.5 MG/DL (0.2-1.0); BLOOD UREA NITROGEN 17 MG/DL (7-18); CALCIUM LEVEL 9.2 MG/DL (8.8-10.2); CARBON DIOXIDE LEVEL 33 MEQ/L (21-32); CHLORIDE LEVEL 106 MEQ/L (98-107); CHOLESTEROL LEVEL 93 MG/DL (<200); CHOLESTEROL RISK RATIO 3.321 (<5); CREATININE FOR GFR 0.93 MG/DL (0.55-1.30); GLOMERULAR FILTRATION RATE > 60.0 (>45); GLUCOSE, FASTING 123 MG/DL (70-100); HDL CHOLESTEROL 28 MG/DL (>40); LDL CHOLESTEROL 26 MG/DL (<100); NON-HDL-C 65 MG/DL; POTASSIUM SERUM 4.4 MEQ/L (3.5-5.1); SODIUM LEVEL 141 MEQ/L (136-145); TOTAL 25(OH) VITAMIN D 40.3 NG/ML (30.0-100.0); TOTAL PROTEIN 7.6 GM/DL (6.4-8.2); TRIGLYCERIDES LEVEL 196 MG/DL (<150)
== END ==
LOC: M WUC 09:17
PROVIDERS: ATTEND Family Medicine
DX: D64.9 Anemia, unspecified (principal); R53.83 Other fatigue; E03.9 Hypothyroidism, unspecified; Z79.899 Other long term (current) drug therapy

== ENCOUNTER → 2021-02-24 | Outpatient (REF) | payer MEDICARE, OTHER, BC | LOC: M SFHCWAGY 12:53 | PROVIDERS: ATTEND Nurse Practitioner Women's Health | DX: Z12.4 Encounter for screening for malignant neoplasm of cervix (principal); R87.610 Atypical squamous cells of undetermined significance on cytologic smear of cervix (ASC-US) ==

== ENCOUNTER → 2021-02-24 | Outpatient (CLI) | payer MEDICARE, OTHER, BC ==
--- NOTE | 2021-02-24 12:51 | REPMRS ---
Patient History The patient states she had a clinical breast exam on 02-24-2021. Patient is postmenopausal, has history of breast cancer at age 66, and is nulliparous. Family history of colorectal cancer under age 50 in brother, colorectal cancer at age 50 or over in father, prostate cancer at age 50 or over in brother, breast cancer at age 50 or over in maternal aunt, breast cancer at age 50 or over in sister, endometrial cancer at age 50 or over in niece. Malignant radio exam breast specimen, July 18, 2016. 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 Taking tamoxifen for 2 years. Patient states no breast complaints today. Patient has signed MRS History Sheet. Digital Woman Screen Mammo: February 24, 2021 - Exam #: [id number] Bilateral CC and MLO view(s) were taken. Technologist: Yulia Lozano Topographical Field Assistant Prior study comparison: October 02, 2019, bilateral digital woman screen mammo performed at [facility]. October 10, 2018, bilateral digital woman screen mammo performed at [facility]. Screening. Digital screening (2D) mammography was performed bilaterally in the CC and MLO projections. Additionally, breast tomosynthesis (3D mammography) was performed bilaterally in the CC and MLO projections. Todays exam was compared to the prior exams. By history, the patient has no complaints of a palpable breast abnormality or other significant breast complaints. The breasts are unchanged in size and shape. There are no raiza-soft tissue densities or spiculated masses.There is stable post-procedural internal architectural distortion. There is no new internal architectural distortion. There are no suspicious raiza-calcific clusters. Skin thickening or nipple retraction is not present on the right. There is stable left breast nipple retraction. IMPRESSION: BI-RADS Category 2- Benign Findings. There is no evidence of malignant alteration of the breasts. Followup examination recommended in one year. The Volpara volumetric breast density category is B, there are scattered areas of fibroglandular density. This mammogram was read with the assistance of [facility] ([facility]),an FDA approved computer aided detection system for mammography. Negative x-ray reports should not delay surgical consultation if a dominant or clinically suspicious mass is present. Not all breast cancers can be identified by mammography. Therefore, we recommend that you continue to perform regular breast self-examination and physical examination and then promptly contact your physician of any concerns or changes. Adenosis and dense breasts may obscure an underlying neoplasm. Assessment: BI-RADS/ACR category 2 mammogram. Benign Findings. Recommendation Routine screening mammogram of both breasts in 1 year. Electronically Signed By: Hayes Hemphill DO 02/24/21 [id number]
== END ==
LOC: M WHC 10:19
PROVIDERS: ATTEND Nurse Practitioner Women's Health
DX: Z01.419 Encounter for gynecological examination (general) (routine) without abnormal findings (principal); Z12.31 Encounter for screening mammogram for malignant neoplasm of breast; Z78.0 Asymptomatic menopausal state; Z85.3 Personal history of malignant neoplasm of breast; Z80.0 Family history of malignant neoplasm of digestive organs; Z92.29 Personal history of other drug therapy
CPT/HCPCS: 77063; 77067; 87624; G0123; G0463

== ENCOUNTER → 2021-11-12 | Outpatient (CLI) | payer MEDICARE, OTHER, BC ==
[~2021-11-12] MED LIST changes: -CEFD1CAP8 PO; +CEFD300C41 PO; -MONT10TA10 PO; +MONT10TA97 PO
[2021-11-12 16:04] LABS: HEMATOCRIT 48.2 % (36.0-47.0); HEMOGLOBIN 14.4 g/dl (12.0-15.5); MEAN CORPUSCULAR HEMOGLOBIN 28.1 pg (27.0-33.0); MEAN CORPUSCULAR HGB CONC 29.9 g/dl (32.0-36.5); PLATELET COUNT, AUTOMATED 192 10^3/uL (150-450); RED BLOOD COUNT 5.13 10^6/uL (4.00-5.40); WHITE BLOOD COUNT 7.7 10^3/uL (4.0-10.0)
[2021-11-12 16:08] LABS: HEMOGLOBIN A1c 6.7 %
[2021-11-12 16:30] LABS: ALBUMIN 3.5 GM/DL (3.2-5.2); ALT/SGPT 18 U/L (12-78); BILIRUBIN,TOTAL 0.4 MG/DL (0.2-1.0); BLOOD UREA NITROGEN 17 MG/DL (7-18); CARBON DIOXIDE LEVEL 32 MEQ/L (21-32); CHLORIDE LEVEL 106 MEQ/L (98-107); CHOLESTEROL LEVEL 101 MG/DL (<200); CHOLESTEROL RISK RATIO 3.366 (<5); CREATININE FOR GFR 0.93 MG/DL (0.55-1.30); GLOMERULAR FILTRATION RATE > 60.0 (>45); GLUCOSE, FASTING 142 MG/DL (70-100); HDL CHOLESTEROL 30 MG/DL (>40); LDL CHOLESTEROL 38 MG/DL (<100); NON-HDL-C 71 MG/DL; POTASSIUM SERUM 4.5 MEQ/L (3.5-5.1); SODIUM LEVEL 142 MEQ/L (136-145); TOTAL 25(OH) VITAMIN D 44.5 NG/ML (30.0-100.0); TOTAL PROTEIN 7.5 GM/DL (6.4-8.2); TRIGLYCERIDES LEVEL 167 MG/DL (<150)
== END ==
LOC: M WUC 11:13
PROVIDERS: ATTEND Family Medicine
DX: M51.36 Other intervertebral disc degeneration, lumbar region (principal); M48.061 Spinal stenosis, lumbar region without neurogenic claudication; M54.40 Lumbago with sciatica, unspecified side; D64.9 Anemia, unspecified; R53.83 Other fatigue; E03.9 Hypothyroidism, unspecified; Z79.899 Other long term (current) drug therapy

== ENCOUNTER → 2022-04-15 | Outpatient (CLI) | payer MEDICARE, BC, OTHER | LOC: M RAD 07:29 | PROVIDERS: ATTEND Pain Medicine Interventional Pain Medicine | DX: M54.16 Radiculopathy, lumbar region (principal) ==

== ENCOUNTER → 2022-08-01 | Outpatient (CLI) | payer MEDICARE, BC, OTHER ==
[2022-08-01 12:38] LABS: HEMATOCRIT 46.4 % (36.0-47.0); HEMOGLOBIN 14.3 g/dl (12.0-15.5); MEAN CORPUSCULAR HEMOGLOBIN 28.6 pg (27.0-33.0); MEAN CORPUSCULAR HGB CONC 30.8 g/dl (32.0-36.5); MEAN CORPUSCULAR VOLUME 92.8 fl (80.0-96.0); PLATELET COUNT, AUTOMATED 191 10^3/uL (150-450); WHITE BLOOD COUNT 6.6 10^3/uL (4.0-10.0)
[2022-08-01 13:17] LABS: HEMOGLOBIN A1c 6.7 %
[2022-08-01 13:29] LABS: ALBUMIN 3.8 GM/DL (3.2-5.2); ALT/SGPT 21 U/L (12-78); BILIRUBIN,TOTAL 0.5 MG/DL (0.2-1.0); BLOOD UREA NITROGEN 17 MG/DL (7-18); CALCIUM LEVEL 9.1 MG/DL (8.8-10.2); CARBON DIOXIDE LEVEL 30 MEQ/L (21-32); CHLORIDE LEVEL 104 MEQ/L (98-107); CHOLESTEROL LEVEL 128 MG/DL (<200); CHOLESTEROL RISK RATIO 3.764 (<5); CREATININE FOR GFR 0.93 MG/DL (0.55-1.30); GLOMERULAR FILTRATION RATE > 60.0 (>39); GLUCOSE, FASTING 131 MG/DL (70-100); HDL CHOLESTEROL 34 MG/DL (>40); LDL CHOLESTEROL 63 MG/DL (<100); NON-HDL-C 94 MG/DL; POTASSIUM SERUM 4.6 MEQ/L (3.5-5.1); SODIUM LEVEL 141 MEQ/L (136-145); TOTAL PROTEIN 7.6 GM/DL (6.4-8.2); TRIGLYCERIDES LEVEL 157 MG/DL (<150)
[2022-08-01 14:01] LABS: TOTAL 25(OH) VITAMIN D 44.8 NG/ML (30.0-100.0)
== END ==
LOC: M WUC 09:50
PROVIDERS: ATTEND Family Medicine
DX: D64.9 Anemia, unspecified (principal); R53.83 Other fatigue; E03.9 Hypothyroidism, unspecified; Z79.899 Other long term (current) drug therapy

== ENCOUNTER → 2022-09-07 | Outpatient (REF) | payer MEDICARE, OTHER | LOC: M SFHCWAGY 16:59 | PROVIDERS: ATTEND Advanced Practice Midwife | DX: Z12.4 Encounter for screening for malignant neoplasm of cervix (principal) | CPT/HCPCS: 87624; G0123 ==

== ENCOUNTER → 2022-09-07 | Outpatient (CLI) | payer MEDICARE, BC, OTHER | LOC: M WHC 10:11 | PROVIDERS: ATTEND Advanced Practice Midwife | DX: Z12.31 Encounter for screening mammogram for malignant neoplasm of breast (principal) ==

== ENCOUNTER → 2022-09-07 | Outpatient (CLI) | payer MEDICARE, BC, OTHER | LOC: M WHC 10:50 | DX: Z13.820 Encounter for screening for osteoporosis (principal); M81.0 Age-related osteoporosis without current pathological fracture; Z79.811 Long term (current) use of aromatase inhibitors; M85.851 Other specified disorders of bone density and structure, right thigh; M85.852 Other specified disorders of bone density and structure, left thigh ==

== ENCOUNTER → 2022-12-15 | Outpatient (CLI) | payer MEDICARE, BC, OTHER | LOC: M RAD 10:18 | PROVIDERS: ATTEND Family Medicine | DX: G31.9 Degenerative disease of nervous system, unspecified (principal) ==

== ENCOUNTER → 2023-06-07 | Outpatient (CLI) | payer MEDICARE, OTHER, BC ==
[2023-06-07 17:29] LABS: HEMATOCRIT 45.4 % (36.0-47.0); MEAN CORPUSCULAR HEMOGLOBIN 29.2 pg (27.0-33.0); MEAN CORPUSCULAR HGB CONC 30.8 g/dl (32.0-36.5); MEAN CORPUSCULAR VOLUME 94.8 fl (80.0-96.0); PLATELET COUNT, AUTOMATED 177 10^3/uL (150-450); RED BLOOD COUNT 4.79 10^6/uL (4.00-5.40); WHITE BLOOD COUNT 5.8 10^3/uL (4.0-10.0)
[2023-06-07 17:49] LABS: ALBUMIN 3.6 G/DL (3.2-5.2); ALKALINE PHOSPHATASE 49 U/L (46-116); ALT/SGPT 18 U/L (7.0-40); AST/SGOT 14 U/L (<34); BILIRUBIN,TOTAL 0.5 MG/DL (0.3-1.2); BLOOD UREA NITROGEN 15 MG/DL (9-23); CALCIUM LEVEL 9.1 MG/DL (8.3-10.6); CARBON DIOXIDE LEVEL 30 MMOL/L (20-31); CHLORIDE LEVEL 104 MMOL/L (98-107); CHOLESTEROL LEVEL 109 MG/DL (<200); CHOLESTEROL RISK RATIO 3.58 (<5); CREATININE FOR GFR 0.71 MG/DL (0.55-1.30); GLOMERULAR FILTRATION RATE > 60.0 (>39); GLUCOSE, FASTING 214 MG/DL (74-106); HDL CHOLESTEROL 30.4 MG/DL (>40); LDL CHOLESTEROL 37.4 MG/DL (<100); NON-HDL-C 78.6 MG/DL; POTASSIUM SERUM 4.5 MMOL/L (3.5-5.1); SODIUM LEVEL 142 MMOL/L (136-145); THYROID STIMULATING HORMONE 2.647 uIU/ML (0.55-4.78); TOTAL 25(OH) VITAMIN D 31.7 NG/ML (20.0-100.0); TOTAL PROTEIN 7.1 G/DL (5.7-8.2); TRIGLYCERIDES LEVEL 206 MG/DL (<150)
[2023-06-07 17:59] LABS: HEMOGLOBIN A1c 7.6 % (4.0-6.0)
== END ==
LOC: M WUC 11:18
PROVIDERS: ATTEND Family Medicine
DX: I10 Essential (primary) hypertension (principal); R53.83 Other fatigue; E03.9 Hypothyroidism, unspecified; Z79.899 Other long term (current) drug therapy

== ENCOUNTER → 2023-11-07 | Outpatient (REF) | payer MEDICARE, OTHER ==
[~2023-11-07] MED LIST changes: +CEFD1CAP9 PO; -CEFD300C41 PO
== END ==
LOC: M PLALAB 15:55
PROVIDERS: ATTEND Advanced Practice Midwife
DX: Z12.4 Encounter for screening for malignant neoplasm of cervix (principal); N95.0 Postmenopausal bleeding
CPT/HCPCS: 87624; G0123

== ENCOUNTER → 2023-11-17 | Outpatient (CLI) | payer MEDICARE, BC, OTHER ==
[~2023-11-17] MED LIST changes: +ISOVUE-370 76% 100ML VIAL As Ordered ONE
== END ==
LOC: M RAD 10:55
PROVIDERS: ATTEND Advanced Practice Midwife
DX: N95.0 Postmenopausal bleeding (principal)
CPT/HCPCS: 76856; Q9967

== ENCOUNTER → 2023-11-23 | Outpatient (CLI) | payer MEDICARE, BC, OTHER ==
[~2023-11-23] MED LIST changes: -ISOVUE-370 76% 100ML VIAL As Ordered ONE
[2023-11-23 18:13] LABS: BASO # 0.1 10^3/uL (0.0-0.2); BASO % 0.9 % (0.0-1.0); EOS # 0.2 10^3/uL (0.0-0.5); HEMATOCRIT 48.7 % (36.0-47.0); HEMOGLOBIN 15.2 g/dl (12.0-15.5); LYMPH # 2.5 10^3/uL (1.5-5.0); MEAN CORPUSCULAR HEMOGLOBIN 29.4 pg (27.0-33.0); MEAN CORPUSCULAR HGB CONC 31.2 g/dl (32.0-36.5); MEAN CORPUSCULAR VOLUME 94.2 fl (80.0-96.0); MONO # 0.8 10^3/uL (0.0-0.8); NEUTROPHILS # 2.8 10^3/uL (1.5-8.5); NEUTROPHILS % 43.9 % (36.0-66.0); PLATELET COUNT, AUTOMATED 170 10^3/uL (150-450); RED BLOOD COUNT 5.17 10^6/uL (4.00-5.40); WHITE BLOOD COUNT 6.3 10^3/uL (4.0-10.0)
[2023-11-23 18:24] LABS: ERYTHROCYTE SEDIMENTATION RATE 43 mm/hr (0-30)
[2023-11-23 18:37] LABS: FERRITIN 127.1 NG/ML (7.3-270.7)
[2023-11-23 18:40] LABS: ALBUMIN 3.6 G/DL (3.2-5.2); ALKALINE PHOSPHATASE 50 U/L (46-116); ALT/SGPT 21 U/L (7.0-40); AST/SGOT 17 U/L (<34); BILIRUBIN,TOTAL 0.6 MG/DL (0.3-1.2); BLOOD UREA NITROGEN 16 MG/DL (9-23); CALCIUM LEVEL 8.8 MG/DL (8.3-10.6); CARBON DIOXIDE LEVEL 29 MMOL/L (20-31); CHLORIDE LEVEL 106 MMOL/L (98-107); GLOMERULAR FILTRATION RATE > 60.0 (>39); GLUCOSE, FASTING 161 MG/DL (74-106); IRON (FE) 73 UG/DL (50-170); PERCENT SATURATION 22.8 % (13.2-45.0); POTASSIUM SERUM 4.4 MMOL/L (3.5-5.1); SODIUM LEVEL 141 MMOL/L (136-145); TOTAL IRON BINDING CAPACITY 320 UG/DL (250-425); TOTAL PROTEIN 7.2 G/DL (5.7-8.2)
== END ==
LOC: M WUC 10:35
PROVIDERS: ATTEND Internal Medicine Rheumatology
DX: N93.9 Abnormal uterine and vaginal bleeding, unspecified (principal); M35.00 Sjogren syndrome, unspecified; M19.90 Unspecified osteoarthritis, unspecified site; R76.8 Other specified abnormal immunological findings in serum

== ENCOUNTER → 2023-11-27 | Outpatient (CLI) | payer MEDICARE, BC, OTHER | LOC: M WHC 11:24 | PROVIDERS: ATTEND Advanced Practice Midwife | DX: Z12.31 Encounter for screening mammogram for malignant neoplasm of breast (principal) ==

== ENCOUNTER → 2024-12-17 | Outpatient (REF) | payer MEDICARE, BC, OTHER ==
[~2024-12-17] MED LIST changes: +GABA-1172 PO; -GABA-282 PO
[2024-12-17 21:04] LABS: HEMATOCRIT 43.9 % (36.0-47.0); HEMOGLOBIN 14.2 g/dl (12.0-15.5); MEAN CORPUSCULAR HEMOGLOBIN 29.3 pg (27.0-33.0); MEAN CORPUSCULAR HGB CONC 32.3 g/dl (32.0-36.5); MEAN CORPUSCULAR VOLUME 90.7 fl (80.0-96.0); PLATELET COUNT, AUTOMATED 158 10^3/uL (150-450); RED BLOOD COUNT 4.84 10^6/uL (4.00-5.40); WHITE BLOOD COUNT 5.7 10^3/uL (4.0-10.0)
[2024-12-17 21:07] LABS: THYROID STIMULATING HORMONE 4.914 uIU/ML (0.55-4.78)
[2024-12-17 21:08] LABS: TOTAL 25(OH) VITAMIN D 39.8 NG/ML (20.0-100.0)
[2024-12-17 21:22] LABS: HEMOGLOBIN A1c 9.2 % (4.0-6.0)
[2024-12-17 21:41] LABS: ALBUMIN 3.5 G/DL (3.2-5.2); ALKALINE PHOSPHATASE 43 U/L (35-104); ALT/SGPT 19 U/L (7.0-40); AST/SGOT 16 U/L (<34); BILIRUBIN,TOTAL 0.5 MG/DL (0.3-1.2); BLOOD UREA NITROGEN 14 MG/DL (9-23); CALCIUM LEVEL 8.7 MG/DL (8.3-10.6); CARBON DIOXIDE LEVEL 25 MMOL/L (20-31); CHLORIDE LEVEL 105 MMOL/L (98-107); CHOLESTEROL LEVEL 104 MG/DL (<200); CHOLESTEROL RISK RATIO 3.82 (<5); CREATININE FOR GFR 0.64 MG/DL (0.55-1.30); GLOMERULAR FILTRATION RATE > 60.0 (>39); GLUCOSE, FASTING 277 MG/DL (74-106); HDL CHOLESTEROL 27.2 MG/DL (>40); LDL CHOLESTEROL 27.2 MG/DL (<100); NON-HDL-C 76.8 MG/DL; SODIUM LEVEL 139 MMOL/L (136-145); TRIGLYCERIDES LEVEL 248 MG/DL (<150)
== END ==
LOC: M LABDRAWC 17:56
PROVIDERS: ATTEND Family Medicine
DX: I10 Essential (primary) hypertension (principal); D64.9 Anemia, unspecified; R53.83 Other fatigue

== ENCOUNTER → 2025-05-20 | Outpatient (CLI) | payer MEDICARE, BC | LOC: M WHC 13:58 | PROVIDERS: ATTEND Advanced Practice Midwife | DX: Z12.31 Encounter for screening mammogram for malignant neoplasm of breast (principal); R92.313 Mammographic fatty tissue density, bilateral breasts ==

== ENCOUNTER → 2025-08-13 | Outpatient (CLI) | payer MEDICARE, BC | LOC: M WHC 10:34 | PROVIDERS: ATTEND Obstetrics & Gynecology | DX: N95.0 Postmenopausal bleeding (principal); N85.8 Other specified noninflammatory disorders of uterus ==

== ENCOUNTER → 2025-10-01 | Outpatient (REF) | payer MEDICARE, BC ==
[2025-10-01 18:02] LABS: PLATELET COUNT, AUTOMATED 186 10^3/uL (150-450)
[2025-10-01 18:06] LABS: CALCIUM LEVEL 8.5 MG/DL (8.3-10.6); CARBON DIOXIDE LEVEL 30 MMOL/L (20-31); CHLORIDE LEVEL 101 MMOL/L (98-107); CHOLESTEROL LEVEL 159 MG/DL (<200); CHOLESTEROL RISK RATIO 5.78 (<5); CREATININE FOR GFR 0.69 MG/DL (0.55-1.30); GLOMERULAR FILTRATION RATE > 90.0 (>39); LDL CHOLESTEROL 85.7 MG/DL (<100); NON-HDL-C 131.5 MG/DL; POTASSIUM SERUM 4.2 MMOL/L (3.5-5.1); SODIUM LEVEL 141 MMOL/L (136-145); TRIGLYCERIDES LEVEL 229 MG/DL (<150)
[2025-10-01 18:11] LABS: FREE T4 1.17 NG/DL (0.89-1.76)
[2025-10-01 18:24] LABS: ESTIMATED AVERAGE GLUCOSE 237.0 MG/DL (60-110)
== END ==
LOC: M SFHCCLAY 11:27
PROVIDERS: ATTEND Student in an Organized Health Care Education/Training Program
DX: Z00.00 Encounter for general adult medical examination without abnormal findings (principal); Z79.899 Other long term (current) drug therapy